=== PATIENT | female | born 1955 | race Caucasian/White ===

== ENCOUNTER 2022-11-18 09:33 | Outpatient (CLI) | payer OTHER, SELFPAY ==
[2022-11-18 13:00] LABS: Albumin* 4.4 g/dL (3.3-5.0); Chloride* 107 mmol/L (96-114)
[2022-11-18 13:01] LABS: Potassium* 4.4 mmol/L (3.6-5.1); Sodium* 140 mmol/L (135-149)
[2022-11-18 13:03] LABS: Alkaline Phosphatase* 106 U/L (40-150); Aspartate Amino Transferase* 22 U/L (12-35); Bilirubin Total* 0.6 mg/dL (0.1-1.5); Blood Urea Nitrogen* 26 mg/dL (7-30); Carbon Dioxide* 27 mmol/L (20-32); Cholesterol* 217 mg/dL (90-199); Creatinine* 0.7 mg/dL (0.5-1.5); Estimated Glomerular Filt Rate 96 ml/min; Glucose* 109 mg/dL (60-115); Total Protein* 7.1 g/dL (6.0-8.3); Triglycerides* 222 mg/dL (40-149)
[2022-11-18 13:04] LABS: Alanine Aminotransferase* 21 U/L (4-35); Calcium* 9.3 mg/dL (8.4-10.6); HDL Cholesterol* 54 mg/dL (>=50); LDL Cholesterol Calculated 119 mg/dL (<100)
[2022-11-18 13:15] LABS: Vitamin D 25 Hydroxy* 17 ng/mL (30-80)
== END 2022-11-18 09:34 | disposition home or self-care (01) ==
PROVIDERS: PCP Family Medicine; Visit Provider Family Medicine
DX: E78.1 Pure hyperglyceridemia (principal); F33.9 Major depressive disorder, recurrent, unspecified; Z79.899 Other long term (current) drug therapy; Z78.0 Asymptomatic menopausal state
CPT/HCPCS: 80053; 80061; 82306

== ENCOUNTER 2022-12-17 13:14 | Outpatient (CLI) | payer OTHER, SELFPAY ==
--- NOTE | 2022-12-17 13:30 | CRLHL7_ITS ---
For Patients: As a result of the Century Cures Act, medical imaging exams and procedure reports are released immediately into your electronic medical record. You may view this report before your referring provider. If you have questions, please contact your health care provider. DXA BONE MINERAL DENSITY STUDY Reason for exam: Screen. Current height (in): 63.5. Weight (lb): 148. Menopause age: 52. Ethnicity: White. 1. Have you had a previous hip or vertebral fracture? No. 2. Have you had any fractures during your adult life which did not result from significant trauma (e.g., auto accident)? No. 3. Did either of your parents have a hip fracture? Yes. 4. Do you smoke? No. 5. Have you ever taken Glucocorticoids? No. 6. Do you have rheumatoid arthritis? No. 7. Do you have secondary osteoporosis? No. 8. Do you drink 3 or more alcoholic drinks per day? No. 9. Are you being treated for osteoporosis? No. 10. Have you ever taken any of the following medications: Actonel, Evista, Fosamax, Miacalcin, Reclast, Boniva, Forteo, HRT (i.e. estrogen/hormone therapy), Protelos, Prolia, Vitamin D, Calcium, other ??? please specify. ANSWER: Yes, vitamin D. 11. Do you have any of the following medical conditions: Anorexia or bulimia, asthma or emphysema, end stage renal disease, hyperparathyroidism, any seizure disorders, cancer, inflammatory bowel diseases, hysterectomy, other ??? please specify. ANSWER: No. 12. What was your maximum height (inches)? 63.5. 13. Do you perform weight bearing exercise regularly? Yes. 14. Do you regularly consume dairy products? Yes. 15. Do you drink caffeinated beverages? Yes. 16. At what age did your period start? Not provided. 17. Are you premenopausal? No. 18. How many full term pregnancies have you had? 2. 19. Have you ever missed your period for more than 6 months in a row (not including or menopause)? No. TECHNIQUE: Bone mineral density study was performed using the [employer]. FINDINGS: The results of the study expressed as bone mineral density (BMD) are as follows: Lumbar spine L1 to L3: BMD: 1.021 g/cm2. T-score: 0.0. Z-score: 1.8. Neck Left: BMD: 0.724 g/cm2. T-score: -1.1. Z-score: 0.4. Right: BMD: 0.753 g/cm2. T-score: -0.9. Z-score: 0.7. Total Left: BMD: 0.871 g/cm2. T-score: -0.6. Z-score: 0.7. Right: BMD: 0.884 g/cm2. T-score: -0.5. Z-score: 0.8. IMPRESSION: Osteopenia. *Comparison exams done prior to 03/2020 were performed on different unit, [facility]. FRAX 10-year Fracture Risk Major Osteoporotic Fracture: 16 percent Hip Fracture: 0.8 percent Reported Risk Factors: [place] () Neck BMD=0.724, BMI=25.8, parental fracture Jovani Aceves M.D. Diagnostic Radiologist [email or web address] LADARIUS/Dictated by: Jovani Aceves MD @ 12/18/2022 10:04:00 AM (Electronically Signed)
== END 2022-12-17 13:15 | disposition home or self-care (01) ==
LOC: RAD 13:16
PROVIDERS: PCP Family Medicine; Visit Provider Family Medicine
DX: Z13.820 Encounter for screening for osteoporosis (principal); M85.89 Other specified disorders of bone density and structure, multiple sites; Z78.0 Asymptomatic menopausal state
CPT/HCPCS: 77080

== ENCOUNTER 2023-12-20 07:59 | Outpatient (CLI) | payer MEDICARE, SELFPAY | END 2023-12-20 08:00 | disposition home or self-care (01) | LOC: NFLDREF 12-22 07:29 | PROVIDERS: PCP Family Medicine; Referring Provider Family Medicine; Visit Provider Physician Assistant Medical | DX: E55.9 Vitamin D deficiency, unspecified (principal); E78.1 Pure hyperglyceridemia; Z13.228 Encounter for screening for other metabolic disorders; Z13.29 Encounter for screening for other suspected endocrine disorder | CPT/HCPCS: 80053; 80061; 82306; 82607; 84443 ==

== ENCOUNTER 2024-02-01 13:47 | Outpatient (RCR) | payer MEDICARE, SELFPAY ==
--- NOTE | 2024-02-02 14:57 | OT.OPOE ---
OT Outpatient Ortho Eval OT Outpatient Ortho Eval* Start: 02/01/24 12:37 Freq: Status: Active Protocol: Document 02/01/24 12:38 KAMALA (Rec: 02/01/24 14:52 KAMALA [id number]) E-signed By Irlanda Rudd, OTR/L, CLT OT OP Ortho Eval Details Complexity Complexity Medium Insurance Information Insurance Information Blue Cross/Blue Shield, Medicare B Outpatient History/Precautions Current Condition/Medical Diagnosis Referring Provider Royal Ramirez PA-C Treatment Diagnosis Pain in Left Elbow, M25.522, Pain in R shoulder, M25.511 Date of Onset Chronic Other Precautions MEDICAL DX: M77.8 Other enthesopathies, not elsewhere classified Left elbow tenonitis Other Conditions Vitamin D deficiency (Acute) E55.9 - Vitamin D deficiency, unspecified (ICD-10) Asymptomatic age-related postmenopausal state (Acute) Z78.0 - Asymptomatic menopausal state (ICD-10) Retina disorder, bilateral ( Acute) Follows with Retina Specialist H35.9 - Unspecified retinal disorder (ICD-10) Hypertriglyceridemia (Acute) E78.1 - Pure hyperglyceridemia (ICD-10) Atrophic rhinitis (Acute) J31.0 - Chronic rhinitis (ICD- 10) Medical/Functional History Medical History Reviewed Yes Prior Level of Function/Mobility Patient lives with her spouse, 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 She is Indep with self cares and IADLs. 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 Patient is highly active and has been trying to self- manage her symptoms. Pain Assessment Pain Present Pain Present Pain Reported Location Left Elbow Description Pressure,Throbbing Intensity 4 Right Shoulder Description Pressure,Throbbing Intensity 3 Hand Pinch/Pottery Striper Strength Hand Right Pottery Striper Strength Position 1 (lbs) 42 Pottery Striper Strength Position 2 (lbs) 45 Lateral Pinch Strength (lbs) 20 Three Point Pinch (lbs) 16 Tip Pinch Strength (lbs) 13 Left Pottery Striper Strength Position 1 (lbs) 40 Pottery Striper Strength Position 2 (lbs) 40 Lateral Pinch Strength (lbs) 16 Three Point Pinch (lbs) 15 Tip Pinch Strength (lbs) 9 Upper Extremity Special Tests Upper Extremity Special Tests Comments Comments Adryskristal?s test = Resisted third digit extension (L UE -, R UE -) Cozen?s test = Resisted wrist extension with radial deviation and full pronation ( L UE +, R UE -) Chair lift test = Lifting the back of a chair with a three- finger pinch (thumb, index long fingers) and the elbow fully extended (L UE +( slightly), R UE -) OT Problems Problems Problems Decreased Strength,Pain, Lifting,Gripping,Pinching Patient Potential Good Assessment Assessment Assessment Patient is an excellent candidate for therapy, she was pleasant, alert, orientated, asked great questions in session, was an active listener to information presented to her and showed signs of motivation/ willingness to follow the presented protocol in POC. PLAN: lateral epicondylitis protocol, use of Ultrasound, Ionto, Manual treatment ( ABEL), development of an individualized home exercise program that progresses as patient is able to take on increased challenge and pain symptoms decrease with patient education on biomechanics/ ergonometric/activity modifications to decrease flare-ups. Occupational Therapy Treatment Plan - OP Potential Rehabilitation Potential Good Barriers Barriers to goal attainment 1. With repetitive work tasks to the tendon(s)/tissue(s) there is no break/time to allow for healing to occur 2. No imaging was done at PCP- unknown amount of damage Set Goals Goals Set with Patient Yes Goals Goals 1. Patient will verbalize 3 activity modifications to decrease abusive/overloading of the tendons. -progressing, continue 2. Pt will demonstrate pain- free welding specialist and pinch strength comparable to the uninvolved side in order to improve functional grasp, hold, reach, and lifting ability needed to complete self-care, leisure tasks, and work activities. - progressing, continue 3. Through activity participation in skilled therapy sessions, and consistency in performing a customized HEP, patient will improve capacity of tendons and muscles to manage load in order to have less pain with ADLs, work, leisure activities and IADLs. -progressing, continue 4. From EVAL raw score ( 17 points) on The Disabilities of the Arm, Shoulder and Hand ( QUICK DASH) patient will have a decreased score by >4 points in order to show significant change in UE function to better her ADL, IADL, work and leisure performance. Target Date 8 weeks Treatment Plan Treatment Plan Evaluation,Edema Control, Iontophoresis,Manual Therapy, Ultrasound,Therapeutic Exercise,Self Care/Home Management,Education Expected Frequency 1x Week Expected Frequency Comments OR NEEDED Expected Duration 8-10 Weeks Home Program Home Program Home Program Initiated Home Program Specifics Tennis Elbow Stretches to the forearm extensors and flexors; Cross Friction Massage to the extensor carpi radialis (ECR) & Ice cup massage after repetitive/heavy activities or when sore/painful (PRN). Access Code: [email or web address] URL: [email or web address] Date: 02/01/2024 Prepared by: Irlanda Rudd Exercises - Shoulder Flexion Wall Slide with Towel - 1 x daily - 7 x weekly - 3 sets - 10 reps - Shoulder External Rotation and Scapular Retraction with Resistance - 1 x daily - 7 x weekly - 3 sets - 10 reps - Scapular Retraction with Resistance - 1 x daily - 7 x weekly - 3 sets - 10 reps - Serratus Activation at Wall with Foam Roll and Resistance Band - 1 x daily - 7 x weekly - 3 sets - 10 reps - Prone Single Arm Shoulder Y - 1 x daily - 7 x weekly - 3 sets - 10 reps - Prone Shoulder Horizontal Abduction - 1 x daily - 7 x weekly - 3 sets - 10 reps - Prone W Scapular Retraction - 1 x daily - 7 x weekly - 3 sets - 10 reps Recertification Information Recertification Information Initial Certification Date 02/01/24 Recertification Due Date 05/01/24 Click To Default 'Per treatment plan' Per treatment plan Continued Plan of Care and Interventions Per treatment plan Provider Signature Shows Agreement With POC & Medical Necessity Physician Comment/Change Comment or Changes Physician NPI Number #
== END 2024-05-31 23:59 | disposition home or self-care (01) ==
PROVIDERS: PCP Family Medicine; Visit Provider Physician Assistant Medical
DX: M77.8 Other enthesopathies, not elsewhere classified (principal); M25.522 Pain in left elbow; M25.511 Pain in right shoulder; Z51.89 Encounter for other specified aftercare
CPT/HCPCS: 97110; 97166; X5282

== ENCOUNTER 2025-02-20 07:58 | Outpatient (CLI) | payer MEDICARE, SELFPAY | END 2025-02-20 07:59 | disposition home or self-care (01) | LOC: NFLDREF 02-26 16:56 | PROVIDERS: PCP Physician Assistant Medical; Referring Provider Physician Assistant Medical; Visit Provider Physician Assistant Medical | DX: Z00.01 Encounter for general adult medical examination with abnormal findings (principal); E78.1 Pure hyperglyceridemia; E55.9 Vitamin D deficiency, unspecified | CPT/HCPCS: 80053; 80061; 82306; 84443 ==

== ENCOUNTER 2025-06-28 09:37 | Outpatient (CLI) | payer MEDICARE, SELFPAY ==
--- NOTE | 2025-06-28 10:00 | CRLHL7_ITS ---
For Patients: As a result of the Century Cures Act, medical imaging exams and procedure reports are released immediately into your electronic medical record. You may view this report before your referring provider. If you have questions, please contact your health care provider. DXA BONE MINERAL DENSITY STUDY Current height (in): 63.5. Weight (lb): 140. Menopause age: 52. Ethnicity: White. 1. Have you had a previous hip or vertebral fracture? No. 2. Have you had any fractures during your adult life which did not result from significant trauma (e.g., auto accident)? No. 3. Did either of your parents have a hip fracture? Yes. 4. Do you smoke? No. 5. Have you ever taken Glucocorticoids? No. 6. Do you have rheumatoid arthritis? No. 7. Do you have secondary osteoporosis? No. 8. Do you drink 3 or more alcoholic drinks per day? No. 9. Are you being treated for osteoporosis? No. 10. Have you ever taken any of the following medications: Actonel, Evista, Fosamax, Miacalcin, Reclast, Boniva, Forteo, HRT (i.e. estrogen/hormone therapy), Protelos, Prolia, Vitamin D, Calcium, other ??? please specify. ANSWER: Yes, Vitamin D. 11. Do you have any of the following medical conditions: Anorexia or bulimia, asthma or emphysema, end stage renal disease, hyperparathyroidism, any seizure disorders, cancer, inflammatory bowel diseases, hysterectomy, other ??? please specify. ANSWER: No. 12. What was your maximum height (inches)? 63.5. 13. Do you perform weight bearing exercise regularly? Yes. 14. Do you regularly consume dairy products? No. 15. Do you drink caffeinated beverages? No. 16. At what age did your period start? not listed. 17. Are you premenopausal? No. 18. How many full term pregnancies have you had? 2. 19. Have you ever missed your period for more than 6 months in a row (not including or menopause)? No. TECHNIQUE: Bone mineral density study was performed using the [employer]. FINDINGS: The results of the study expressed as bone mineral density (BMD) are as follows: Lumbar spine L1 to L3: BMD: 1.008 g/cm2. T-score: -0.1. Z-score: 1.8. Neck Left: BMD: 0.689 g/cm2. T-score: -1.4. Z-score: 0.2. Right: BMD: 0.703 g/cm2. T-score: -1.3. Z-score: 0.4. Total Left: BMD: 0.896 g/cm2. T-score: -0.4. Z-score: 1.0. Right: BMD: 0.883 g/cm2. T-score: -0.5. Z-score: 0.9. IMPRESSION: Osteopenia. COMPARISON: Compared with scan of 12/17/2022, the bone mineral density has decreased by 1.2 percent at the spine and increased by 1.4 percent at the hip. FRAX 10-year Fracture Risk Major Osteoporotic Fracture: 16 percent Hip Fracture: 19 percent Reported Risk Factors: [place] () Neck BMD=0.689, BMI=24.4 Jovani Aceves M.D. Diagnostic Radiologist [email or web address] CONNOR/taylor DW/Dictated by: Jovani Aceves MD @ 06/29/2025 11:26:00 AM (Electronically Signed)
--- NOTE | 2025-06-28 10:45 | CRLHL7_ITS ---
For Patients: As a result of the Century Cures Act, medical imaging exams and procedure reports are released immediately into your electronic medical record. You may view this report before your referring provider. If you have questions, please contact your health care provider. INDICATION: BILATERAL SCREENING MAMMOGRAM, ASYMPTOMATIC 50 Y/O FEMALE COMPARISON: 03/02/2023, 02/27/2022, 09/09/2020 TECHNIQUE: Digital mammogram in CC and MLO projections including computer-aided detection (CAD) and tomosynthesis. BREAST COMPOSITION: The breasts are heterogeneously dense, which may obscure small masses. FINDINGS: No suspicious findings. ASSESSMENT: BI-RADS 1 Negative RECOMMENDATION: Annual screening mammogram. A lay language report of this examination will be provided to the patient. Dictated by: Jovani Aceves MD @ 06/29/2025 10:31:13 (Electronically Signed)
== END 2025-06-28 09:38 | disposition home or self-care (01) ==
LOC: RAD 09:38
PROVIDERS: PCP Physician Assistant Medical; Visit Provider Physician Assistant Medical
DX: Z12.31 Encounter for screening mammogram for malignant neoplasm of breast (principal); R92.333 Mammographic heterogeneous density, bilateral breasts; M85.89 Other specified disorders of bone density and structure, multiple sites
CPT/HCPCS: 77063; 77067; 77080